=== PATIENT | male | born 1985 | race Caucasian/White ===

== ENCOUNTER 2017-05-27 19:51 | Emergency (ER) | payer SELFPAY | END 2017-05-27 20:20 | disposition left against medical advice (07) | LOC: EMS 19:52 | DX: K62.89 Other specified diseases of anus and rectum (principal); Z53.21 Procedure and treatment not carried out due to patient leaving prior to being seen by health care provider ==

== ENCOUNTER 2017-07-09 11:21 | Inpatient (IN) | payer MEDICAID ==
[~2017-07-09] VITALS: Ht 177.8 cm; Wt 66.7 kg
[2017-07-09 11:59] LABS: BASOPHILS # (AUTO) 0.09 K/uL (0.00-0.20); BASOPHILS % (AUTO) 1.4 % (0.0-2.0); EOSINOPHILS # (AUTO) 0.16 K/uL (0.00-0.70); EOSINOPHILS % (AUTO) 2.28 % (1.0-6.0); HEMATOCRIT 42.8 % (41-53); HEMOGLOBIN 14.5 g/dL (13.5-17.5); LYMPHOCYTES % (AUTO) 29.9 % (22.0-44.0); MEAN CORPUSCULAR HEMOGLOBIN 30.1 pg (26.0-34.0); MEAN CORPUSCULAR HGB CONC 33.8 G/dL (31.0-37.0); MEAN CORPUSCULAR VOLUME 89 fL (80-100); MONOCYTES # (AUTO) 0.7 K/uL (0.1-1.0); MONOCYTES % (AUTO) 9.8 % (2.0-9.0); NEUTROPHILS # (AUTO) 3.9 K/uL (1.8-7.7); NEUTROPHILS % (AUTO) 56.7 % (40.0-70.0); PLATELET COUNT (AUTO) 309 K/uL (150-450); RED CELL DISTRIBUTION WIDTH 12.9 % (11.5-14.5); WHITE BLOOD COUNT (AUTO) 6.8 K/uL (4.5-11.0)
[2017-07-09 12:07] LABS: ANION GAP 3 mmol/L (8-16); CALCIUM, TOTAL 8.8 mg/dL (8.8-10.5); CARBON DIOXIDE 31 mmol/L (22-29); CHLORIDE 104 mmol/L (98-107); CREATININE 0.77 mg/dL (0.60-1.30); GLOMERULAR FILTR. RATE CALC > 60 mL/min (>60); POTASSIUM 4.2 mmol/L (3.5-5.1); SODIUM SERUM 138 mmol/L (136-145); UREA NITROGEN, BLOOD 15 mg/dL (7-18)
[2017-07-09 12:15] LABS: ALANINE AMINOTRANSFERASE 29 U/L (12-78); ALBUMIN 3.8 g/dL (3.4-5.0); ASPARTATE AMINOTRANSFERASE 16 U/L (15-37); BILIRUBIN,TOTAL 0.8 mg/dL (0.1-1.0); TOTAL PROTEIN, SERUM 7.3 g/dL (6.4-8.2)
[2017-07-09] MEDS ORDERED: QUEtiapine FUMARATE 100 MG TABLET PO ONE (12:30)
[2017-07-09] MEDS ORDERED: ZOLPIDEM TARTRATE 10 MG TABLET PO PRN (13:30)
[2017-07-09] MEDS ORDERED: QUEtiapine FUMARATE 100 MG TABLET PO PRN (13:30)
[2017-07-09 16:45] VITALS: BP 111/76
[2017-07-09] MEDS ORDERED: INFLUENZA VIRUS VACCINE QVS 2017-18 (3YR+)/PF 60 MCG/0.5 ML SYRINGE IM ONE (17:30)
[2017-07-10 00:09] VITALS: BP 118/65
[2017-07-10] MEDS ORDERED: LOPERAMIDE HCL 2 MG CAPSULE PO PRN (08:45)
[2017-07-10] MEDS ORDERED: CloNIDine HCL 0.1 MG TABLET PO PRN (08:45)
[2017-07-10] MEDS ORDERED: PETROLATUM,WHITE 71 GM JELLY TP PRN (08:45)
[2017-07-10] MEDS ORDERED: MAG HYDROX/AL HYDROX/SIMETH ES 30 ML SUSPENSION UDCUP PO PRN (08:45)
[2017-07-10] MEDS ORDERED: ONDANSETRON HCL 4 MG TABLET PO PRN (08:45)
[2017-07-10] MEDS ORDERED: BENZOCAINE/MENTHOL LOZENGE MM PRN (08:45)
[2017-07-10] MEDS ORDERED: BACITRACIN 28.4 GM OINTMENT TP PRN (08:45)
[2017-07-10] MEDS ORDERED: MAGNESIUM HYDROXIDE SUSPENSION 30 ML UDCUP PO PRN (08:45)
[2017-07-10] MEDS ORDERED: ALBUTEROL SULFATE HFA 90 MCG/PUFF 8 GM INHALER IH PRN (08:45)
[2017-07-10] MEDS ORDERED: IBUPROFEN 600 MG TABLET PO PRN (08:45)
[2017-07-10 10:01] LABS: CHOL/HDL RATIO 2.4 (4.2-7.3)
[2017-07-10 10:27] VITALS: BP 130/77
[2017-07-10] MEDS: ARIPiprazole 10 MG TABLET PO SCH (12:34)
[2017-07-10] MEDS: ACETAMINOPHEN 325 MG TABLET PO PRN ×2 (13:29→19:09)
[2017-07-10 16:12] VITALS: BP 120/80
[2017-07-10 19:09] VITALS: BP 124/70
[2017-07-10 20:02] VITALS: BP 128/72
[2017-07-11 00:10] VITALS: BP 132/78
[2017-07-11] MEDS: ACETAMINOPHEN 325 MG TABLET PO PRN (00:38)
[2017-07-11] MEDS: ARIPiprazole 10 MG TABLET PO SCH (09:04)
[2017-07-11 09:17] VITALS: BP 137/74
[2017-07-11] MEDS: NICOTINE 21 MG/24 HOUR PATCH TD SCH (14:18)
[2017-07-11 16:32] VITALS: BP 131/83
[2017-07-12 05:16] VITALS: BP 126/77
[2017-07-12] MEDS: NICOTINE 21 MG/24 HOUR PATCH TD SCH (09:08)
[2017-07-12] MEDS: ARIPiprazole 10 MG TABLET PO SCH (09:08)
[2017-07-12 10:08] VITALS: BP 141/75
[2017-07-12] MEDS: LORazepam 2 MG TABLET PO PRN (13:37)
[2017-07-12 16:18] VITALS: BP 135/85
[2017-07-12] MEDS: ACETAMINOPHEN 325 MG TABLET PO PRN (17:13)
[2017-07-13 00:05] VITALS: BP 125/82
[2017-07-13 08:10] VITALS: BP 128/60
[2017-07-13] MEDS: ARIPiprazole 10 MG TABLET PO SCH (08:45)
[2017-07-13] MEDS: NICOTINE 21 MG/24 HOUR PATCH TD SCH (08:46)
[2017-07-13] MEDS: LORazepam 2 MG TABLET PO PRN (14:42)
[2017-07-13 16:09] VITALS: BP 124/77
[2017-07-14 01:11] VITALS: BP 124/65
[2017-07-14] MEDS: ARIPiprazole 10 MG TABLET PO SCH (08:08)
[2017-07-14] MEDS: NICOTINE 21 MG/24 HOUR PATCH TD SCH (08:08)
[2017-07-14 08:35] VITALS: BP 139/65
[2017-07-14] MEDS: ACETAMINOPHEN 325 MG TABLET PO PRN (09:50)
[2017-07-14] MEDS ORDERED: ARIP10TA8 PO (14:16)
== END 2017-07-14 15:05 | disposition home or self-care (01) | DRG 750 ==
LOC: EMS 11:22 → B2S 13:53
PROVIDERS: ADMIT Psychiatry & Neurology Psychiatry; ATTEND Psychiatry & Neurology Psychiatry
DX: F25.0 Schizoaffective disorder, bipolar type (principal); R45.851 Suicidal ideations; F15.20 Other stimulant dependence, uncomplicated; F17.210 Nicotine dependence, cigarettes, uncomplicated; F10.10 Alcohol abuse, uncomplicated; F41.9 Anxiety disorder, unspecified; F19.10 Other psychoactive substance abuse, uncomplicated; G47.00 Insomnia, unspecified; Z91.5 Personal history of self-harm; Z91.19 Patient's noncompliance with other medical treatment and regimen; Z88.8 Allergy status to other drugs, medicaments and biological substances; Z59.0 Homelessness; Z71.41 Alcohol abuse counseling and surveillance of alcoholic; Z71.51 Drug abuse counseling and surveillance of drug abuser; Z71.6 Tobacco abuse counseling; Z28.21 Immunization not carried out because of patient refusal
CPT/HCPCS: 99285; G0480

== ENCOUNTER 2017-08-24 15:32 | Inpatient (IN) | payer MEDICAID ==
[~2017-08-24] VITALS: Ht 177.8 cm; Wt 66.3 kg
[~2017-08-24 15:32] MED LIST: ARIP10TA8 PO
[2017-08-24 16:30] LABS: BASOPHILS % (AUTO) 0.4 % (0.0-2.0); HEMATOCRIT 40.5 % (41-53); LYMPHOCYTES # (AUTO) 1.8 K/uL (1.0-4.8); LYMPHOCYTES % (AUTO) 18.5 % (22.0-44.0); MEAN CORPUSCULAR HEMOGLOBIN 31.5 pg (26.0-34.0); MEAN CORPUSCULAR HGB CONC 34.5 G/dL (31.0-37.0); MEAN CORPUSCULAR VOLUME 91 fL (80-100); MONOCYTES # (AUTO) 0.8 K/uL (0.1-1.0); MONOCYTES % (AUTO) 7.9 % (2.0-9.0); NEUTROPHILS # (AUTO) 6.8 K/uL (1.8-7.7); NEUTROPHILS % (AUTO) 71.2 % (40.0-70.0); PLATELET COUNT (AUTO) 335 K/uL (150-450); RED BLOOD CELL COUNT(AUTO) 4.45 MIL/uL (4.50-5.90); RED CELL DISTRIBUTION WIDTH 13.5 % (11.5-14.5); WHITE BLOOD COUNT (AUTO) 9.6 K/uL (4.5-11.0)
[2017-08-24 16:44] LABS: ANION GAP 8 mmol/L (8-16); CALCIUM, TOTAL 8.8 mg/dL (8.8-10.5); CARBON DIOXIDE 30 mmol/L (22-29); CHLORIDE 104 mmol/L (98-107); GLOMERULAR FILTR. RATE CALC > 60 mL/min (>60); SODIUM SERUM 142 mmol/L (136-145); UREA NITROGEN, BLOOD 15 mg/dL (7-18)
[2017-08-24 16:57] LABS: ALANINE AMINOTRANSFERASE 31 U/L (12-78); ALBUMIN 3.3 g/dL (3.4-5.0); ASPARTATE AMINOTRANSFERASE 19 U/L (15-37); BILIRUBIN,TOTAL 0.4 mg/dL (0.1-1.0); TOTAL PROTEIN, SERUM 6.7 g/dL (6.4-8.2)
[2017-08-24] MEDS ORDERED: GuaiFENesin/D-METHORPHAN [SUGAR-FREE] 200-20MG/10 ML SYRUP UDCUP PO PRN (18:00)
[2017-08-24] MEDS ORDERED: IBUPROFEN 600 MG TABLET PO PRN (18:00)
[2017-08-24] MEDS ORDERED: HydrOXYzine PAMOATE 50 MG CAPSULE PO PRN ×2 (18:00)
[2017-08-24] MEDS ORDERED: ZOLPIDEM TARTRATE 10 MG TABLET PO PRN (18:00)
[2017-08-24] MEDS ORDERED: MAGNESIUM HYDROXIDE SUSPENSION 30 ML UDCUP PO PRN (18:00)
[2017-08-24] MEDS ORDERED: ACETAMINOPHEN 325 MG TABLET PO PRN (18:00)
[2017-08-24] MEDS ORDERED: LOPERAMIDE HCL 2 MG CAPSULE PO PRN (18:00)
[2017-08-24] MEDS ORDERED: PROMETHAZINE HCL 25 MG/ML VIAL IM PRN (18:00)
[2017-08-24] MEDS ORDERED: TUBERCULIN, PURIFIED PROTEIN DERIVATIVE 5 TU/0.1 ML SYG ID ONE (18:00)
[2017-08-24] MEDS ORDERED: CYANOCOBALAMIN 1,000 MCG/ML VIAL IM ONE (18:00)
[2017-08-24] MEDS ORDERED: PROMETHAZINE HCL 25 MG TABLET PO PRN (18:00)
[2017-08-24] MEDS ORDERED: CloNIDine HCL 0.1 MG TABLET PO PRN (18:00)
[2017-08-24] MEDS ORDERED: MAG HYDROX/AL HYDROX/SIMETH ES 30 ML SUSPENSION UDCUP PO PRN ×2 (18:00)
[2017-08-24] MEDS: CloNIDine HCL 0.1 MG TABLET PO SCH (22:00)
[2017-08-25] MEDS: CloNIDine HCL 0.1 MG TABLET PO SCH ×4 (06:18→21:31)
[2017-08-25] MEDS: LORazepam 2 MG TABLET PO PRN ×2 (07:47→13:09)
[2017-08-25] MEDS: OLANZapine 5 MG RAPDIS TABLET PO PRN ×2 (07:47→13:10)
[2017-08-25 08:33] LABS: HEMOGLOBIN A1C 5.1 % (4.5-6.2)
[2017-08-25 08:41] LABS: ALANINE AMINOTRANSFERASE 35 U/L (12-78); ALBUMIN 3.4 g/dL (3.4-5.0); ANION GAP 4 mmol/L (8-16); ASPARTATE AMINOTRANSFERASE 19 U/L (15-37); BILIRUBIN,TOTAL 0.6 mg/dL (0.1-1.0); CALCIUM, TOTAL 8.6 mg/dL (8.8-10.5); CARBON DIOXIDE 32 mmol/L (22-29); CHLORIDE 102 mmol/L (98-107); CHOL/HDL RATIO 2.8 (4.2-7.3); CREATININE 0.89 mg/dL (0.60-1.30); GLOMERULAR FILTR. RATE CALC > 60 mL/min (>60); POTASSIUM 4.2 mmol/L (3.5-5.1); SODIUM SERUM 138 mmol/L (136-145); THYROID STIMULATING HORMONE 0.46 uIU/mL (0.36-3.74); TOTAL PROTEIN, SERUM 7.1 g/dL (6.4-8.2); UREA NITROGEN, BLOOD 11 mg/dL (7-18)
[2017-08-25] MEDS: THIAMINE HCL 100 MG TABLET PO SCH ×2 (09:00→21:30)
[2017-08-25] MEDS: MULTIVITAMINS WITH MINERALS, THERAPEUTIC TABLET PO SCH (09:00)
[2017-08-25] MEDS: ACAMPROSATE CALCIUM 333 MG DR TABLET PO SCH ×2 (09:00→17:00)
[2017-08-25] MEDS: FOLIC ACID 1 MG TABLET PO SCH (09:00)
[2017-08-25] MEDS: FLUoxetine HCL 20 MG CAPSULE PO SCH (09:00)
[2017-08-25 09:54] LABS: BASOPHILS % (AUTO) 0.5 % (0.0-2.0); EOSINOPHILS % (AUTO) 1.2 % (1.0-6.0); HEMOGLOBIN 14.7 g/dL (13.5-17.5); LYMPHOCYTES # (AUTO) 0.8 K/uL (1.0-4.8); LYMPHOCYTES % (AUTO) 9.8 % (22.0-44.0); MEAN CORPUSCULAR HEMOGLOBIN 31.2 pg (26.0-34.0); MEAN CORPUSCULAR HGB CONC 34.2 G/dL (31.0-37.0); MEAN CORPUSCULAR VOLUME 91 fL (80-100); MONOCYTES # (AUTO) 0.7 K/uL (0.1-1.0); NEUTROPHILS # (AUTO) 6.1 K/uL (1.8-7.7); NEUTROPHILS % (AUTO) 79.5 % (40.0-70.0); PLATELET COUNT (AUTO) 259 K/uL (150-450); RED CELL DISTRIBUTION WIDTH 13.5 % (11.5-14.5); WHITE BLOOD COUNT (AUTO) 7.7 K/uL (4.5-11.0)
[2017-08-25] MEDS: GABAPENTIN 100 MG CAPSULE PO SCH ×3 (11:08→21:33)
[2017-08-25 16:00] VITALS: BP 106/60
[2017-08-25] MEDS ORDERED: LIDOCAINE HCL 2% 5 ML JELLY TP ONE (17:18)
[2017-08-25] MEDS ORDERED: INFLUENZA VIRUS VACCINE QVS 2017-18 (3YR+)/PF 60 MCG/0.5 ML SYRINGE IM ONE (18:15)
[2017-08-25 19:00] VITALS: BP 110/63
[2017-08-25] MEDS ORDERED: CYANOCOBALAMIN 1,000 MCG/ML VIAL IM ONE (19:15)
[2017-08-25] MEDS ORDERED: OLANZapine 10 MG RAPDIS TABLET PO SCH (21:00)
[2017-08-26 00:41] VITALS: BP 139/89
[2017-08-26 00:42] VITALS: BP 139/89
[2017-08-26] MEDS: CloNIDine HCL 0.1 MG TABLET PO SCH ×4 (06:24→21:11)
[2017-08-26 08:00] VITALS: BP 112/63
[2017-08-26] MEDS: THIAMINE HCL 100 MG TABLET PO SCH ×2 (08:44→16:21)
[2017-08-26] MEDS: GABAPENTIN 100 MG CAPSULE PO SCH ×4 (08:44→20:34)
[2017-08-26] MEDS: FOLIC ACID 1 MG TABLET PO SCH (08:44)
[2017-08-26] MEDS: FLUoxetine HCL 20 MG CAPSULE PO SCH (08:44)
[2017-08-26] MEDS: ACAMPROSATE CALCIUM 333 MG DR TABLET PO SCH ×3 (08:44→16:21)
[2017-08-26] MEDS: MULTIVITAMINS WITH MINERALS, THERAPEUTIC TABLET PO SCH (08:44)
[2017-08-26 10:15] VITALS: BP 112/63
[2017-08-26 12:43] VITALS: BP 122/68
[2017-08-26 16:24] VITALS: BP 110/67
[2017-08-26] MEDS: DIVALPROEX SODIUM 500 MG ER TABLET PO SCH (20:34)
[2017-08-26] MEDS ORDERED: OLANZapine 10 MG RAPDIS TABLET PO SCH (21:00)
[2017-08-27 01:36] VITALS: BP 107/60
[2017-08-27 06:00] VITALS: BP 121/60
[2017-08-27] MEDS: CloNIDine HCL 0.1 MG TABLET PO SCH ×4 (06:03→21:01)
[2017-08-27 08:00] VITALS: BP 116/61
[2017-08-27] MEDS: GABAPENTIN 100 MG CAPSULE PO SCH ×4 (09:15→20:21)
[2017-08-27] MEDS: THIAMINE HCL 100 MG TABLET PO SCH ×2 (09:16→16:13)
[2017-08-27] MEDS: FLUoxetine HCL 20 MG CAPSULE PO SCH (09:16)
[2017-08-27] MEDS: MULTIVITAMINS WITH MINERALS, THERAPEUTIC TABLET PO SCH (09:16)
[2017-08-27] MEDS: ACAMPROSATE CALCIUM 333 MG DR TABLET PO SCH ×3 (09:16→16:13)
[2017-08-27] MEDS: FOLIC ACID 1 MG TABLET PO SCH (09:16)
[2017-08-27 10:40] VITALS: BP 108/65
[2017-08-27 16:00] VITALS: BP 106/64
[2017-08-27] MEDS ORDERED: LOPERAMIDE HCL 2 MG CAPSULE PO PRN (18:00)
[2017-08-27] MEDS: OLANZapine 10 MG RAPDIS TABLET PO SCH (20:21)
[2017-08-27] MEDS: DIVALPROEX SODIUM 500 MG ER TABLET PO SCH (20:21)
[2017-08-27 21:05] VITALS: BP 105/62
[2017-08-28 00:59] VITALS: BP 113/64
[2017-08-28 06:00] VITALS: BP 110/63
[2017-08-28] MEDS: CloNIDine HCL 0.1 MG TABLET PO SCH ×4 (06:15→21:32)
[2017-08-28 08:51] VITALS: BP 100/58
[2017-08-28] MEDS: CHOLECALCIFEROL (VIT D3) 1,000 UNITS TABLET PO SCH (08:51)
[2017-08-28] MEDS: FOLIC ACID 1 MG TABLET PO SCH (08:51)
[2017-08-28] MEDS: ACAMPROSATE CALCIUM 333 MG DR TABLET PO SCH ×3 (08:51→16:37)
[2017-08-28] MEDS: FLUoxetine HCL 20 MG CAPSULE PO SCH (08:51)
[2017-08-28] MEDS: THIAMINE HCL 100 MG TABLET PO SCH ×2 (08:51→16:38)
[2017-08-28] MEDS: GABAPENTIN 100 MG CAPSULE PO SCH ×4 (08:51→20:19)
[2017-08-28] MEDS: MULTIVITAMINS WITH MINERALS, THERAPEUTIC TABLET PO SCH (08:51)
[2017-08-28 10:15] VITALS: BP 115/68
[2017-08-28 16:00] VITALS: BP 108/62
[2017-08-28] MEDS: DIVALPROEX SODIUM 500 MG ER TABLET PO SCH (20:18)
[2017-08-28] MEDS: OLANZapine 10 MG RAPDIS TABLET PO SCH (20:19)
[2017-08-28 21:30] VITALS: BP 106/61
[2017-08-29] VITALS (8 sets, daily range): BP systolic 100–122; BP diastolic 56–70
[2017-08-29] MEDS: CloNIDine HCL 0.1 MG TABLET PO SCH ×4 (05:46→22:03)
[2017-08-29] MEDS: MULTIVITAMINS WITH MINERALS, THERAPEUTIC TABLET PO SCH (09:26)
[2017-08-29] MEDS: FLUoxetine HCL 20 MG CAPSULE PO SCH (09:26)
[2017-08-29] MEDS: GABAPENTIN 100 MG CAPSULE PO SCH ×4 (09:26→20:34)
[2017-08-29] MEDS: ACAMPROSATE CALCIUM 333 MG DR TABLET PO SCH ×3 (09:26→16:41)
[2017-08-29] MEDS: CHOLECALCIFEROL (VIT D3) 1,000 UNITS TABLET PO SCH (09:26)
[2017-08-29] MEDS: FOLIC ACID 1 MG TABLET PO SCH (09:26)
[2017-08-29] MEDS: THIAMINE HCL 100 MG TABLET PO SCH ×2 (09:27→16:01)
[2017-08-29] MEDS: DIVALPROEX SODIUM 500 MG ER TABLET PO SCH (20:28)
[2017-08-29] MEDS: OLANZapine 10 MG RAPDIS TABLET PO SCH (20:29)
[2017-08-30 05:54] VITALS: BP 116/65
[2017-08-30] MEDS: CloNIDine HCL 0.1 MG TABLET PO SCH ×4 (05:56→22:07)
[2017-08-30 09:06] VITALS: BP 97/44
[2017-08-30] MEDS: CHOLECALCIFEROL (VIT D3) 1,000 UNITS TABLET PO SCH (09:12)
[2017-08-30] MEDS: MULTIVITAMINS WITH MINERALS, THERAPEUTIC TABLET PO SCH (09:12)
[2017-08-30] MEDS: FLUoxetine HCL 20 MG CAPSULE PO SCH (09:12)
[2017-08-30] MEDS: ACAMPROSATE CALCIUM 333 MG DR TABLET PO SCH ×3 (09:12→17:12)
[2017-08-30] MEDS: FOLIC ACID 1 MG TABLET PO SCH (09:12)
[2017-08-30] MEDS: THIAMINE HCL 100 MG TABLET PO SCH ×2 (09:12→16:21)
[2017-08-30] MEDS: GABAPENTIN 100 MG CAPSULE PO SCH ×4 (09:12→20:15)
[2017-08-30 12:06] VITALS: BP 108/61
[2017-08-30 12:57] VITALS: BP 99/62
[2017-08-30 16:00] VITALS: BP 103/60
[2017-08-30] MEDS: DIVALPROEX SODIUM 500 MG ER TABLET PO SCH (20:15)
[2017-08-30] MEDS: OLANZapine 10 MG RAPDIS TABLET PO SCH (20:15)
[2017-08-30 22:06] VITALS: BP 112/68
[2017-08-31] MEDS: CloNIDine HCL 0.1 MG TABLET PO SCH ×2 (06:00→12:27)
[2017-08-31 06:02] VITALS: BP 104/60
[2017-08-31] MEDS: GABAPENTIN 100 MG CAPSULE PO SCH ×3 (08:42→16:07)
[2017-08-31] MEDS: ACAMPROSATE CALCIUM 333 MG DR TABLET PO SCH ×3 (08:42→16:07)
[2017-08-31] MEDS: THIAMINE HCL 100 MG TABLET PO SCH ×2 (08:42→16:07)
[2017-08-31] MEDS: FOLIC ACID 1 MG TABLET PO SCH (08:42)
[2017-08-31] MEDS: FLUoxetine HCL 20 MG CAPSULE PO SCH (08:42)
[2017-08-31] MEDS: CHOLECALCIFEROL (VIT D3) 1,000 UNITS TABLET PO SCH (08:42)
[2017-08-31] MEDS: MULTIVITAMINS WITH MINERALS, THERAPEUTIC TABLET PO SCH (08:42)
[2017-08-31 10:18] VITALS: BP 98/62
[2017-08-31] MEDS ORDERED: FLUO-191 PO (12:24)
[2017-08-31] MEDS ORDERED: OLAN10TA22 PO (12:24)
[2017-08-31] MEDS ORDERED: ACAM333T7 PO (12:24)
[2017-08-31] MEDS ORDERED: DIVA500T52 PO (12:24)
[2017-08-31] MEDS ORDERED: GABA-529 PO (12:24)
[2017-08-31 12:27] VITALS: BP 118/69
== END 2017-08-31 17:05 | disposition home or self-care (01) | DRG 750 ==
LOC: EMS 15:36 → AHU 08-25 06:42 → B2S 08-25 15:25
PROVIDERS: ADMIT Psychiatry & Neurology Psychiatry; ATTEND Psychiatry & Neurology Psychiatry
PROC: 3E0234Z Introduction of Serum, Toxoid and Vaccine into Muscle, Percutaneous Approach (ICD-10-PCS; principal; 2017-08-26)
DX: F25.9 Schizoaffective disorder, unspecified (principal); R45.851 Suicidal ideations; F23 Brief psychotic disorder; F15.10 Other stimulant abuse, uncomplicated; F12.90 Cannabis use, unspecified, uncomplicated; F17.210 Nicotine dependence, cigarettes, uncomplicated; E55.9 Vitamin D deficiency, unspecified; F41.9 Anxiety disorder, unspecified; F32.9 Major depressive disorder, single episode, unspecified; Z88.8 Allergy status to other drugs, medicaments and biological substances; Z65.3 Problems related to other legal circumstances; Z79.899 Other long term (current) drug therapy; Z91.14 Patient's other noncompliance with medication regimen; Z23 Encounter for immunization
CPT/HCPCS: 82306; 83036; 84439; 84443; 86592; 90471; 99285; G0480; J3420